=== PATIENT | male | born 1965 | race Caucasian/White ===

== ENCOUNTER 2024-02-10 18:42 | Emergency (ER) | payer SELFPAY ==
[2024-02-10] VITALS (20 sets, daily range): BP systolic 121–168; BP diastolic 67–114; PULSE 59–93; RESP 18–26; TEMP 36.4–36.6; O2SAT 94–99
--- NOTE | 2024-02-10 18:45 | RT.EKG_ITS ---
APPROVED REPORT Exam: Resting ECG Reason for Exam: SOB Patient Location: E HR:84 bpm ECG Measurements Heart Rate 84 AXIS RI 164 P 69 QRSd 76 QRS 28 QT 367 T 43 QTc 437 Conclusion Sinus rhythm...normal P axis, V-rate 60- 99 Atrial premature complex...SV complex w/ short R-R interval Normal [place] I have reviewed and interpreted ECG and agree with software generated interpretation.
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
--- NOTE | 2024-02-10 19:37 | DI.RAD_ITS ---
Exam(s) XR PORTABLE CHEST AP EXAM: XR PORTABLE CHEST AP CLINICAL HISTORY: PUI/SOB. TECHNIQUE: 2D digital imaging was performed. COMPARISON: No exams were available for comparison FINDINGS: LUNGS: Clear. No pleural abnormality seen. HEART: Normal size. AORTA: Normal diameter. BONES: Unremarkable for age. Soft tissues: Unremarkable. IMPRESSION: No acute findings. DATA REPOSITORY: RADIATION DOSE DELIVERED:
[2024-02-10] MEDS: Bacitracin 1 PACKET TP (19:42)
[2024-02-10 20:09] LABS: COVID-19 PCR Negative (Negative); Influenza A PCR Negative (Negative); Influenza B PCR Negative (Negative); RSV PCR Negative (Negative)
[2024-02-10 20:11] LABS: Source Nasopharynx
--- NOTE | 2024-02-10 20:29 | DI.VRAD_ITS ---
PROCEDURE INFORMATION: Exam: XR Chest Exam date and time: 02/10/2024 7:36 PM Age: 58 years old Clinical indication: Shortness of breath TECHNIQUE: Imaging protocol: Radiologic exam of the chest. Views: 1 view. COMPARISON: No relevant prior studies available. FINDINGS: Lungs: Lungs are clear with no infiltrate or nodule. Pleural spaces: Unremarkable. No pleural effusion. No pneumothorax. Heart/Mediastinum: Cardiomediastinal silhouette is normal. Bones/joints: Unremarkable. IMPRESSION: No active cardiopulmonary disease. Dictated and Authenticated by: Grant Moreno MD. Ordering:TRICE High MD
[2024-02-10] MEDS: Amox. 875/Clav. 125, 2 TABS/BTL 1 TAB PO (21:03)
[2024-02-10] MEDS: Amoxicillin 875/Clav. 125 TAB PO (21:03)
== END 2024-02-10 21:49 | disposition home or self-care (01) ==
PROVIDERS: Emergency Provider Registered Nurse Emergency
DX: L03.116 Cellulitis of left lower limb (principal); F17.210 Nicotine dependence, cigarettes, uncomplicated; F17.290 Nicotine dependence, other tobacco product, uncomplicated; Z59.00 Homelessness unspecified
CPT/HCPCS: 87637; 93005; 99285; 71045; 93010; 99284

== ENCOUNTER 2024-03-03 20:21 | Emergency (ER) | payer SELFPAY ==
[2024-03-03] VITALS (41 sets, daily range): BP systolic 109–162; BP diastolic 60–83; PULSE 42–66; RESP 6–19; TEMP 36.1; O2SAT 95–99
--- NOTE | 2024-03-03 20:15 | RT.EKG_ITS ---
APPROVED REPORT Exam: Resting ECG Reason for Exam: sob Patient Location: E HR:60 bpm ECG Measurements Heart Rate 60 AXIS [place] 171 P 73 QRSd 80 QRS 46 QT 395 T 51 QTc 394 Conclusion Sinus rhythm...normal P axis, V-rate 60- 99 Consider anteroseptal infarct...Q >30mS, dimin R, V1-V2 Physician: no stemi
--- NOTE | 2024-03-03 20:30 | DI.RAD_ITS ---
Exam(s) XR CHEST 2V PA LATERAL EXAM: XR CHEST 2V PA LATERAL CLINICAL HISTORY: dizziness TECHNIQUE: 2D digital imaging was performed. Two views. COMPARISON: CR,XR XR PORTABLE CHEST AP from 02/10/2024 FINDINGS: HEART: Normal size. Aorta: Not dilated. PULMONARY VASCULATURE: Normal. MEDIASTINUM: Unremarkable. LUNGS: Clear. PLEURAL SPACE: No pleural effusion or pneumothorax. BONE:Unremarkable for age. SOFT TISSUES: Unremarkable. IMPRESSION: No acute abnormality. DATA REPOSITORY: RADIATION DOSE DELIVERED:
--- NOTE | 2024-03-03 20:36 | W.ED.GENAD ---
Discharge Plan Disposition Patient Disposition: Home Condition: Stable Discharge Details Clinical Impression: Episode of dizziness, Chest discomfort Primary Care Provider: Joselito Irwin ED Provider: Michelle Finney Home Meds and New Rx's Prescriptions: No Action No Known Home Meds Discharge Instructions Additional Instructions: Please call [facility] first thing in the morning to schedule follow-up appointment to discuss today's episodes of chest pain and dizziness. A referral has been made for you to have emergency department follow-up. Your workup today was reassuring. Please return to emergency care if you develop new chest pains, difficulty breathing, episodes of passing out, or if you are very worried and need to be rechecked again immediately. Referrals: Joselito Irwni, REFRACTORY MIXER [Primary Care Provider] - [facility] General Date/Time Provider Initiated Documentation: 03/03/24 20:22. [facility] Narrative: Hari is a 58-year-old male who presents to the emergency department today for evaluation of elevated blood glucose, generally not feeling well, and episode of chest pressure that occurred this morning. He reports that this morning he woke up and had an episode of chest pressure that lasted approximately 10 minutes while laying in bed. This was not accompanied by any other symptoms, resolved spontaneously. This afternoon he was sitting in a chair and felt dizzy, lasting only a couple of seconds, no other associated symptoms such as nausea/vomiting, allover warmth, vision changes. This also resolved spontaneously; he is not currently dizzy. He says that he has not been feeling well today, has had chills as well. He checked his blood sugar with a friend's meter and it read high, so he became concerned and wanted to come to the emergency department. No known past medical history, says he has not seen a doctor in a long time. Denies history of drug use. He does have a chronic cough attributed to 2 pack/day smoking habit. Denies regular EtOH use. Physical exam very reassuring. Patient alert and oriented, no acute distress. Moist mucous membranes. Cranial nerves II through XII intact as tested. EOMs intact, no nystagmus. Normal finger finger, finger-nose, rapid alternating movements, Romberg, heel busch, tandem walk, gait. 5 out of 5 muscle strength upper and lower extremities. Easy work of breathing, lung sounds clear bilaterally. Normal heart sounds. Abdomen is soft, nondistended, nontender to palpation with normoactive bowel sounds. DDx includes but is not limited to: Viral illness, cardiac arrhythmia, GERD, electrolyte imbalance, dehydration, vasovagal near syncope, orthostatic hypotension, ACS less likely I independently interpreted the following tests: CBC, CMP, magnesium, troponin all reassuring. COVID/flu/RSV negative. EKG reassuring, normal sinus rhythm with rate 60, no changes consistent with acute ischemia. Chest xray unremarkable, no obvious infiltrates or cardiomegaly. Handoff report given to Dr. Fenton, overnight attending; second troponin pending. Related Data Home Medications ?Medication ?Instructions ?Recorded ?Confirmed Unknown [No Known Home Meds] 03/03/24 03/03/24 Allergies Allergy/AdvReac Type Severity Reaction Status Date / Time No Known Allergies Allergy Unverified 02/10/24 19:08 General Stated Complaint: SOB/SuddenOnset LAKISHA: 2 Review of Systems Narrative: See HPI Exam Const General: cooperative, healthy appearing, comfortable, no acute distress, well developed and well groomed Nutritional Appearance: average body habitus HENMD Head: normal to inspection Face and sinus: normal facial exam Mouth: moist mucous membranes Eyes Pupils: PERRL EOM: EOM intact bilaterally Neck Neck: normal visual inspection and full ROM Resp Effort & Inspection: normal respiratory effort and able to speak in complete sentences Auscultation: clear to auscultation bilaterally Cardio Rate: regular rate Rhythm: regular rhythm GI Inspection: normal to inspection and non-distended Palpation: soft, not firm and not rigid Auscultation: normal bowel sounds Neuro General: patient alert, patient oriented x3, gait normal, tone normal, moves all extremities, no focal motor deficits and CN's II-XI intact bilaterally Cranial Nerves: CN's II-XI intact bilaterally, sense of smell intact, PERRL, EOM intact bilaterally and no nystagmus Cognition: normal cognition Speech: speech normal Gait: normal gait Motor: muscle tone normal throughout and strength 5/5 throughout Sensory Exam: no sensory deficits noted Coordination: [id number] test normal, [id number]-[id number] test normal, Romberg test normal, tandem gait normal, Does not sway with eyes open and rapid alternating movement UE normal Course Vital Signs Vital signs: Vital Signs Temperature 36.1 C L 03/03/24 20:20 Pulse 53 L 03/03/24 20:20 Respiratory Rate 13 03/03/24 20:20 Blood Pressure 154/65 H 03/03/24 20:20 Pulse Oximetry 98 03/03/24 20:20 Temperature 36.1 C L 03/03/24 20:20 Temperature Source Skin 03/03/24 20:20 Pulse 53 L 03/03/24 20:20 Respiratory Rate 13 03/03/24 20:26 Respiratory Effort Normal 03/03/24 20:26 Respiratory Depth Normal 03/03/24 20:26 Respiratory Pattern Normal 03/03/24 20:26 Blood Pressure 154/65 H 03/03/24 20:20 Blood Pressure Position Supine 03/03/24 20:20 Pulse Oximetry 98 03/03/24 20:20 Oxygen Delivery Method Room Air 03/03/24 20:20 Oxygen Flow Rate 0 03/03/24 20:20 Pain Level 3 03/03/24 20:20 Medical Decision Making Quality:SDOH Health Related Social Needs: No Data to Display PFSH All Active Problems (Updated 03/03/24 @ 22:34 by Michelle Adam) Chest discomfort (Acute) Episode of dizziness (Acute) Cellulitis (Acute) Dog scratch (Acute) Social History Smoking/Tobacco Use Status: Current every day Tobacco Type: cigarettes Tobacco: How many years used: 20 Smoking risk assessment performed?: Yes Alcohol Intake: current Alcohol Intake frequency: holidays/special occasions only Alcohol type: beer Drug use: Occasionally Substance use type: marijuana Housing: house Do you feel safe at home: Yes Do you feel safe in your relationship?: Yes
[2024-03-03 20:45] LABS: Abs Immature Grans 0.02 10^3/uL (0.0-0.06); Absolute Basophil Count 0.09 10^3/uL (0.0-0.2); Absolute Eosinophil Count 0.21 10^3/uL (0.0-0.7); Absolute Lymphocyte Count 3.25 10^3/uL (1.2-3.4); Absolute Monocyte Count 0.58 10^3/uL (0.1-0.8); Absolute Neutrophil Count 5.37 10^3/uL (1.2-6.7); Basophils % 0.9 %; Eosinophils % 2.2 %; HCT 45.4 % (40.0-50.0); Immature Grans % 0.2 %; Lymphocytes % 34.1 %; MCH 30.7 pg (27.0-33.0); MCV 93 fL (80-95); MPV 10.7 fL (8.0-11.0); Monocytes % 6.1 %; Neutrophils % 56.5 %; Platelet Count 194 10^3/uL (130-400); RBC 4.88 10^6/uL (4.36-5.78); RDW 13.1 % (11.8-14.1); RDW-SD 44.6 fL; WBC 9.52 10^3/uL (4.4-10.8)
[2024-03-03] MEDS: Acetaminophen 325 MG TAB 650 MG PO (20:57)
[2024-03-03 21:00] LABS: ALT 17 U/L (16-63); AST 12 U/L (15-37); Albumin 3.5 g/dL (3.4-5.0); Alkaline Phosphatase 101 U/L (46-116); Anion Gap 5.7 mmol/L (3-11); BUN 12 mg/dL (7-18); Bilirubin, Total 0.32 mg/dL (0.2-1.0); CO2 30.3 mmol/L (21.0-32.0); CREATININE 1.1 mg/dL (0.70-1.30); Calcium 9.1 mg/dL (8.5-10.1); Chloride 104 mmol/L (98-107); Estimated GFR 77.33 (mL/min/1.73m2); Glucose 88 mg/dL (74-106); Magnesium 2.1 mg/dL (1.8-2.4); Potassium 3.9 mmol/L (3.5-5.1); Sodium 140 mmol/L (136-145); Total Protein 7.2 g/dL (6.4-8.2); Troponin I < 50 ng/L (< or =60)
[2024-03-03 21:42] LABS: COVID-19 PCR Negative (Negative); Influenza A PCR Negative (Negative); Influenza B PCR Negative (Negative); RSV PCR Negative (Negative)
[2024-03-03 21:59] LABS: Source NASOPHARYNX
--- NOTE | 2024-03-03 23:48 | DI.VRAD_ITS ---
PROCEDURE INFORMATION: Exam: XR Chest Exam date and time: 03/03/2024 10:39 PM Age: 58 years old Clinical indication: Other: Dizziness TECHNIQUE: Imaging protocol: Radiologic exam of the chest. Views: 2 views. COMPARISON: CR XR PORTABLE CHEST AP 02/10/2024 7:36 PM FINDINGS: Lungs: Unremarkable. No consolidation. Pleural spaces: Unremarkable. No pleural effusion. No pneumothorax. Heart/Mediastinum: Unremarkable. No cardiomegaly. Vasculature: Unfolding of the thoracic aorta. Bones/joints: Small multilevel anterior osteophytes of the thoracic spine. IMPRESSION: No acute cardiopulmonary process. Dictated and Authenticated by: Montrell Lopez MD. Ordering:WILIAN Martinez MD
[2024-03-03 23:54] LABS: Troponin I < 50 ng/L (< or =60)
[2024-03-04] VITALS: PULSE 51; RESP 12; O2SAT 97
[2024-03-04 00:01] VITALS: BP 135/71; PULSE 49; PULSE 56; RESP 18; O2SAT 97
--- NOTE | 2024-03-04 00:02 | W.EDPROG ---
Date of service: 03/04/24 Time of Service: 00:03 Medical Decision Making Patient was signed out to me by my colleague Michelle. Please refer to her HPI, physical exam, assessment and plan. We are pending repeat troponin at time of reassessment, with expectant discharge. Repeat troponin has returned normal, EKG benign. Patient has no chest pain. Low risk in regards to potential for Mace. Symptoms appear clinically inconsistent with ACS. Patient will be discharged home. Will recommend nonemergent outpatient stress testing. Patient states he will be contacting his PCP. Discussed red flags for which to return. I have extensively reviewed the treatment plan and discharge instructions with the patient. I have addressed all patient concerns at this time. The patient was made aware of what symptoms to monitor for that would warrant a return to the emergency department. Discussed the plan with the patient, they demonstrate verbal understanding and agreement with our assessment and plan at this time. The documentation in this chart was dictated using [employer] dictation software. Please excuse any dictation errors. FINDINGS: Lungs: Unremarkable. No consolidation. Pleural spaces: Unremarkable. No pleural effusion. No pneumothorax. Heart/Mediastinum: Unremarkable. No cardiomegaly. Vasculature: Unfolding of the thoracic aorta. Bones/joints: Small multilevel anterior osteophytes of the thoracic spine. IMPRESSION: No acute cardiopulmonary process. Thank you for allowing us to participate in the care of your patient. Dictated and Authenticated by: Montrell Lopez MD 03/03/2024 11:48 PM Eastern Time ([place] & [place]) Quality:SDOH Health Related Social Needs: No Data to Display Discharge Plan Disposition Patient Disposition: Home Condition: Stable Discharge Details Clinical Impression: Episode of dizziness, Chest discomfort Primary Care Provider: Joselito Irwin ED Provider: Michelle Finney Home Meds and New Rx's Prescriptions: No Action No Known Home Meds Discharge Instructions Additional Instructions: Please call [facility] first thing in the morning to schedule follow-up appointment to discuss today's episodes of chest pain and dizziness as well as to help schedule outpatient nonemergent stress testing.. A referral has been made for you to have emergency department follow-up. Your workup today was reassuring. If you notice any worsening of your symptoms, or any new symptoms such as vomiting, diarrhea, fever, chills, shortness of breath, chest pain, numbness, weakness, or fainting , please return immediately to the emergency department for reevaluation. Please follow up with your primary care provider as soon as possible for reassessment and reevaluation. As always, it was a pleasure participating in your medical care today. Referrals: Joselito Irwin NP [Primary Care Provider] -
== END 2024-03-04 00:11 | disposition home or self-care (01) ==
LOC: ER 22:34 → RED 03-04 00:11
PROVIDERS: Emergency Provider Nurse Practitioner Family; PCP Nurse Practitioner Family
DX: R42 Dizziness and giddiness (principal); R51.9 Headache, unspecified; R07.9 Chest pain, unspecified; F17.210 Nicotine dependence, cigarettes, uncomplicated
CPT/HCPCS: 00123; 36415; 80053; 87637; 93005; 99285; 71046; 83735; 84484; 85025; 93010; 99284

== ENCOUNTER 2024-03-15 09:02 | Outpatient (CLI) | payer MEDICAID, SELFPAY ==
--- NOTE | 2024-03-15 09:00 | RT.EKG_ITS ---
APPROVED REPORT Exam: Resting ECG Reason for Exam: ED f/u Patient Location: O HR:47 bpm ECG Measurements Heart Rate [address] 201 P -12 QRSd 84 QRS 26 QT 431 T 39 QTc 381 Conclusion Sinus bradycardia...rate< 50 Poor R wave progression, likely due to lead placement
== END 2024-03-15 09:03 | disposition home or self-care (01) ==
LOC: DI.CM 09:03
PROVIDERS: PCP Nurse Practitioner Family; Visit Provider Nurse Practitioner Family
DX: R07.89 Other chest pain (principal)
CPT/HCPCS: 93010

== ENCOUNTER 2024-04-07 21:30 | Outpatient (REF) | payer MEDICAID, SELFPAY ==
[2024-04-07 21:43] LABS: Bilirubin Negative (Negative); Blood Negative (Negative); Clarity Clear (Clear); Glucose Negative (Negative); Ketones Negative (Negative); Leukocyte Esterase Negative (Negative); Nitrite Negative (Negative); Urobilinogen 0.2 mg/dL (Up to 0.2)
[2024-04-07 21:54] LABS: Hemoglobin A1C 5.4 % (<5.7)
[2024-04-07 22:21] LABS: Calculated LDL 160 mg/dL (<100); Cholesterol 227 mg/dL (<200); HDL Cholesterol 56 mg/dL (40-60); Triglyceride 59 mg/dL (<150); Vitamin B12 298 pg/mL (193-986)
[2024-04-08 18:03] LABS: PSA, Screening 0.7 ng/mL (<=3.5)
[2024-04-11 10:25] LABS: HIV-1/2 Ag & Ab Screen Negative (Negative)
[2024-04-11 10:29] LABS: Hepatitis C Ab w Rflx HCV PCR Negative (Negative)
== END 2024-04-07 21:31 | disposition home or self-care (01) ==
LOC: LBN 21:30
PROVIDERS: PCP Nurse Practitioner Family; Visit Provider Nurse Practitioner Family
DX: Z12.5 Encounter for screening for malignant neoplasm of prostate (principal); Z11.4 Encounter for screening for human immunodeficiency virus [HIV]; R35.0 Frequency of micturition; G62.9 Polyneuropathy, unspecified; R73.9 Hyperglycemia, unspecified; Z13.220 Encounter for screening for lipoid disorders; Z11.59 Encounter for screening for other viral diseases
CPT/HCPCS: 80061; 84153; 86803; 87389; 81003; 82607; 83036

== ENCOUNTER 2024-05-06 00:20 | Outpatient (CLI) | payer MEDICAID, SELFPAY ==
--- NOTE | 2024-05-06 13:55 | DI.CT_ITS ---
Exam(s) CT CHEST WO EXAM: CT CHEST WO CLINICAL HISTORY: chest discomfort,smoker,productive cough,f17.200,r05.8,r07.89. TECHNIQUE: Multi planar reconstructions were performed. CONTRAST MATERIAL: None COMPARISON: CR,XR XR CHEST 2V PA LATERAL from 03/03/2024 FINDINGS: CHEST: LUNGS: No confluent infiltrates nor pleural effusions. No evidence of obvious interstitial fibrosis. There is a fissure related 4 mm noncalcified nodule in the right lower lobe adjacent to the major f issure. There is a benign-appearing 2 millimeter pleural based nodule in the anterior basal segment of the right lower lobe. There is also a 3 mm noncalcified nodule in the lateral basal segment of th e right lower lobe. In the opposite-left lung there is a small 2-3 mm noncalcified nodule in the lateral basal segment of the left lower lobe. There are no pleural effusions. No significant focal findings in the trachea and mainstem bronchi an d there is no bronchiectasis. MEDIASTINUM: There is no obvious hilar nor mediastinal adenopathy. CARDIAC: Heart size is normal. There is no pericardial effusion.Caliber of the thoracic aorta is wit hin normal limits. VISUALIZED UPPER ABDOMEN:There is a hypodense nodule in the right adrenal gland measuring 1.5 x 1.1 c m. Density measures -6 HU. This is less than 10 HU and therefore most probably an adenoma. OSSEOUS: No significant osseous lesions.No fractures.. IMPRESSION: 1. Multiple small bilateral pulmonary nodules measuring up to 4 mm size. 2. No infiltrates nor pleural effusions nor intrathoracic adenopathy. 3. Small hypodense nodule in the right adrenal gland which is most probably an incidental adenoma (d ensity measuring -6 HU) Recommend follow-up CT scan in 12 months (see below) Solid nodules smaller than 6 mm do not require routine follow-up in all patients with high clinical r isk; however, some nodules smaller than 6 mm with suspicious morphology, upper lobe location, or both may warrant follow-up at 12 months (grade 2A; weak recommendation, high-quality evidence). (Elaine et al., 2017) RADIATION DOSE DELIVERED: 199.16mGy.cm Total DLP DATA REPOSITORY: All CT scans at this facility are submitted to the National Radiology Data Registry (NRDR) Dose Index Registry (DIR) with the [employer] (ACR). RADIATION OPTIMIZATION: All CT scans at this facility use at least one of these dose optimization te chniques: automated exposure control; mA and/or kV adjustment per patient size (includes targeted exa ms where dose is matched to clinical indication); or iterative reconstruction.
== END 2024-05-06 00:40 ==
PROVIDERS: PCP Nurse Practitioner Family; Visit Provider Nurse Practitioner Family
DX: F17.210 Nicotine dependence, cigarettes, uncomplicated (principal); R05.8 Other specified cough; R91.8 Other nonspecific abnormal finding of lung field
CPT/HCPCS: 71250

== ENCOUNTER 2024-05-06 01:57 | Outpatient (CLI) | payer MEDICAID, SELFPAY ==
[2024-05-06] MEDS: Inhaler, Assist Device 1 EACH MC (13:55)
[2024-05-06] MEDS: Levalbuterol HFA 15 GM INH 4 PUFF IH (13:55)
--- NOTE | 2024-05-07 10:29 | W.PFT ---
Date of service: 05/06/24 Time of Service: 12:52 Pulmonary Function Test Result Indications: Chest pressure Interpretation Spirometry: There is no airflow limitaiton. No bronchodilator response. Lung Volumes: Normal lung volumes Diffusion Capacity: Normal diffusion Airway Pressure: Normal airways resistance Impression Normal pulmonary function testing Clinical Correlation therefore is recommended.
== END 2024-05-06 01:58 | disposition home or self-care (01) ==
LOC: RT 01:58
PROVIDERS: PCP Nurse Practitioner Family; Visit Provider Nurse Practitioner Family
DX: R07.89 Other chest pain (principal); F17.210 Nicotine dependence, cigarettes, uncomplicated
CPT/HCPCS: 94060; 94726; 94729

== ENCOUNTER 2024-12-19 15:52 | Outpatient (REF) | payer MEDICAID, SELFPAY | END 2024-12-19 15:53 | disposition home or self-care (01) | LOC: LBN 15:52 | PROVIDERS: PCP Nurse Practitioner Family; Visit Provider Podiatrist | DX: L97.529 Non-pressure chronic ulcer of other part of left foot with unspecified severity (principal); L02.612 Cutaneous abscess of left foot | CPT/HCPCS: 87070; 87075; 87205 ==

== ENCOUNTER 2024-12-23 01:28 | Outpatient (CLI) | payer MEDICAID, SELFPAY ==
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
== END 2024-12-23 01:48 ==
LOC: DI 01:28
PROVIDERS: PCP Nurse Practitioner Family; Visit Provider Podiatrist
DX: L02.612 Cutaneous abscess of left foot (principal)
CPT/HCPCS: 73630

== ENCOUNTER 2025-01-06 10:00 | Outpatient (CLI) | payer MEDICAID, SELFPAY ==
[2025-01-06 12:22] LABS: HCT 47.1 % (40.0-50.0); HGB 15.9 g/dL (13.5-17.5); MCH 31.4 pg (27.0-33.0); MCHC 33.8 % (32.0-36.0); MCV 93 fL (80-95); MPV 11.5 fL (8.0-11.0); Platelet Count 159 10^3/uL (130-400); RBC 5.07 10^6/uL (4.36-5.78); RDW 11.9 % (11.8-14.1); RDW-SD 40.6 fL; WBC 5.88 10^3/uL (4.4-10.8)
[2025-01-06 12:52] LABS: Folate 16.4 ng/mL (8.6-20.0)
== END 2025-01-06 10:01 | disposition home or self-care (01) ==
PROVIDERS: PCP Nurse Practitioner Family; Referring Provider Nurse Practitioner Family; Visit Provider Nurse Practitioner Family
DX: G62.9 Polyneuropathy, unspecified (principal)
CPT/HCPCS: 36415; 85027; 82746

== ENCOUNTER 2025-01-09 15:34 | Outpatient (REF) | payer MEDICAID, SELFPAY | END 2025-01-09 15:35 | disposition home or self-care (01) | LOC: LBN 15:34 | PROVIDERS: PCP Nurse Practitioner Family; Visit Provider Podiatrist | DX: L97.529 Non-pressure chronic ulcer of other part of left foot with unspecified severity (principal); S91.302A Unspecified open wound, left foot, initial encounter | CPT/HCPCS: 87070; 87075; 87205 ==

== ENCOUNTER 2025-04-11 15:01 | Outpatient (CLI) | payer MEDICAID, SELFPAY ==
[2025-04-11 16:06] LABS: Abs Immature Grans 0.01 10^3/uL (0.0-0.06); HCT 46.1 % (40.0-50.0); HGB 15.4 g/dL (13.5-17.5); Immature Grans % 0.2 %; MCH 30.3 pg (27.0-33.0); MCHC 33.4 % (32.0-36.0); MCV 91 fL (80-95); MPV 10.4 fL (8.0-11.0); Platelet Count 199 10^3/uL (130-400); RBC 5.08 10^6/uL (4.36-5.78); RDW 12.4 % (11.8-14.1); RDW-SD 41.6 fL; WBC 6.39 10^3/uL (4.4-10.8)
[2025-04-11 16:55] LABS: ALT 20 U/L (16-63); AST 18 U/L (15-37); Albumin 4.2 g/dL (3.4-5.0); Alkaline Phosphatase 108 U/L (46-116); Anion Gap 9.7 mmol/L (3-11); BUN 20 mg/dL (7-18); Bilirubin, Total 0.7 mg/dL (0.2-1.0); CO2 26.3 mmol/L (21.0-32.0); Calcium 8.9 mg/dL (8.5-10.1); Chloride 104 mmol/L (98-107); Cholesterol 227 mg/dL (<200); Estimated GFR 86.16 (mL/min/1.73m2); Glucose 89 mg/dL (74-106); Potassium 4.1 mmol/L (3.5-5.1); Sodium 140 mmol/L (136-145); Total Protein 7.7 g/dL (6.4-8.2); Triglyceride 48 mg/dL (<150); Vitamin B12 338 pg/mL (193-986)
[2025-04-11 22:29] LABS: PSA, Diagnostic 0.5 ng/mL (<=4.5)
[2025-04-12 05:02] LABS: Calculated LDL 161 mg/dL (<100); HDL Cholesterol 57 mg/dL (>or=40)
== END 2025-04-11 15:02 | disposition home or self-care (01) ==
LOC: LOS 15:01
PROVIDERS: PCP Nurse Practitioner Family; Referring Provider Nurse Practitioner Family; Visit Provider Nurse Practitioner Family
DX: E78.5 Hyperlipidemia, unspecified (principal); R35.0 Frequency of micturition; G62.9 Polyneuropathy, unspecified
CPT/HCPCS: 36415; 80053; 80061; 82607; 83930; 84153; 85025

== ENCOUNTER 2025-04-11 17:17 | Outpatient (REF) | payer MEDICAID, SELFPAY ==
[2025-04-11 20:06] LABS: Glucose Negative (Negative)
== END 2025-04-11 17:18 | disposition home or self-care (01) ==
LOC: LBN 17:17
PROVIDERS: PCP Nurse Practitioner Family; Visit Provider Nurse Practitioner Family
DX: R35.0 Frequency of micturition (principal); R35.1 Nocturia
CPT/HCPCS: 81003

== ENCOUNTER 2025-04-24 02:41 | Outpatient (CLI) | payer MEDICAID, SELFPAY ==
--- NOTE | 2025-04-24 08:45 | DI.CT_ITS ---
Exam(s) CT CHEST WO EXAM: CT CHEST WO CLINICAL HISTORY: constant cough, smoker, productive cough, f17.200,r05.8. TECHNIQUE: Imaging protocol: Axial computed tomography images were obtained and coronal and sagittal reformatted images were created and reviewed. Lung Computer Aided Detection (CAD) was utilized. COMPARISON: CR,XR XR CHEST 2V PA LATERAL from 03/03/[address] CHEST WO from 05/06/2024 FINDINGS: Tracheobronchial tree: Patent where visualized. No bronchiectasis is present. Pulmonary parenchyma: There is a stable nodule in the lateral basilar segment of the left lower lobe (series 2, image 108). There is a stable 3 mm nodule in the anterior aspect of the left upper lobe (series 2, image 42). There is a stable 5 mm nodule in the right upper lobe (series 2, image 53). There are stable nodules in the right middle lobe. There is a stable nodule associated with the right major fissure. There are no new pulmonary nodules. There are no focal consolidating infiltrates. Mediastinum and Shi: No dominant adenopathy or fluid collection. The esophagus is unremarkable. Thyroid gland: Unremarkable. Pleura: No effusion or pneumothorax. Heart: The heart is not dilated. Single-vessel coronary artery calcifications are present. No pericardial effusion. Aorta: Thoracic aorta non-dilated. Atherosclerotic calcification is present. Upper abdomen: Unremarkable. Lymph nodes: Within normal limits. Soft tissues: Unremarkable. Bones:Within normal limits for the patient's age. IMPRESSION: 1. Stable pulmonary nodules. 2. There are no new pulmonary nodules. 3. There is no acute pulmonary process. RADIATION DOSE DELIVERED: 206.68mGy.cm Total DLP 206.68mGy.cm Total DLP DATA REPOSITORY: All CT scans at this facility are submitted to the National Radiology Data Registry (NRDR) Dose Index Registry (DIR) with the [employer] ([employer]). RADIATION OPTIMIZATION: All CT scans at this facility use at least one of these dose optimization techniques: automated exposure control; mA and/or kV adjustment per patient size (includes targeted exams where dose is matched to clinical indication); or iterative reconstruction.
== END 2025-04-24 03:01 ==
LOC: DI 02:41
PROVIDERS: PCP Nurse Practitioner Family; Visit Provider Nurse Practitioner Family
DX: F17.210 Nicotine dependence, cigarettes, uncomplicated (principal); R05.8 Other specified cough; Z12.2 Encounter for screening for malignant neoplasm of respiratory organs; R91.8 Other nonspecific abnormal finding of lung field
CPT/HCPCS: 71250

== ENCOUNTER 2025-05-12 06:04 | Day surgery (SDC) | payer MEDICAID, SELFPAY ==
--- NOTE | 2025-05-11 16:59 | W.PM.DSUDISC ---
Date of service: 05/12/25 Discharge Plan Disposition Patient Disposition: Home Condition: Good Discharge Details Reason For Visit: Screening colonoscopy Attending Provider: Brent Steinberg Primary Care Provider: Joselito Irwin Home Meds and New Rx's Prescriptions: Continued ketoconazole 2 % cream 1 applic topical DAILY Qty: 120 6RF Rx Instructions: Apply to toenails once daily albuterol sulfate 90 mcg/actuation HFA aerosol inhaler 2 inh inhalation Q6H PRN (Reason: shortness of breath or wheezing) Qty: 18 4RF Rx Instructions: Dispense covered brand fluticasone propionate [Children's Flonase Allergy Rlf] 50 mcg/actuation spray,suspension 2 spray intranasal BID Qty: 16 0RF Rx Instructions: administer into each nostril amitriptyline 50 mg tablet 50 mg PO QHS Qty: 90 5RF rosuvastatin 5 mg tablet 5 mg PO DAILY Qty: 90 0RF Discontinued bisacodyl [Dulcolax (bisacodyl)] 5 mg tablet,delayed release (DR/EC) 5 mg PO ONCE Qty: 4 0RF Rx Instructions: Take per colonoscopy instructions provided by ordering providers office polyethylene glycol 3350 17 gram/dose powder 17 g PO ONCE Qty: 238 0RF Rx Instructions: Take per colonoscopy instructions provided by ordering providers office Discharge Instructions Additional Instructions: Team, it was nice meeting you today, and hope you feel well after the procedure. Things went smoothly. I did not see any signs of tumors, polyps, or any other worrisome pathology. With a negative colonoscopy today, recommend 10-year interval for next screening. If you need anything or have any questions, please do not hesitate to ask. 1. If tolerated, consume a soft, low fiber diet for 1-2 days. 2[address] Do not drive, drink alcohol, operate machinery, make critical decisions, or do activities that require coordination or balance for 24 hours. 3. Because air was put into your colon during the procedure, expelling air from your rectum (passing gas or farting) is normal. 4. You may not have a bowel movement for 1-3 days because of the colonoscopy prep. This is normal. 5. Go directly to the emergency room if you notice any of the following: Develop chills (warm to touch), or if you have a thermometer and your temperature is above 101 Difficulty breathing or difficultly swallowing Persistent vomiting Severe abdominal pain, other than gas cramps Severe chest pain Black, tarry stools Any bleeding – exceeding one tablespoon 6. Call your physician if the site where your intravenous was started becomes red, swollen, painful, and warm to touch. 7. Your physician has reviewed your pre-procedure medications. Please continue to take those medications as previously ordered. You will be given specific information/education regarding any changes to your medications before leaving. Stand Alone Forms: Anesthesia Discharge InsthCito, Elan Rodriges (DSU) Activity:: Activity as Tolerated Diet:: As Tolerated Discharge Orders Discharge Orders: Discharge Order (Routine); Ordered 05/11/25 Ordered By: Brent Steinberg DS: Diagnosis Discharge Diagnosis (1) Screening for colorectal cancer: Status: Acute Asessment and Plan: Negative screening colonoscopy; follow-up in
--- NOTE | 2025-05-11 17:00 | W.COLOREPORT ---
Date of service: 05/12/25 Time of Service: 08:04 Colonoscopy Report Date of procedure: 05/12/25 Pre-op diagnosis general: Screening colonoscopy Post-op diagnosis procedure note: other (Negative screening colonoscopy) Procedure: Colonoscopy Surgeon: Brent Steinberg Anesthesia Type: General:No Airway Estimated blood loss (mL): 0 Pathology: none sent Complications: None Disposition: same day Indications: Colin is a 59-year-old male who needs his next screening colonoscopy Prep: Miralax/Dulcolax Procedure Start Time: 07:33 Procedure End Time: 07:58 Retraction Time: 18 Findings: Negative screening colonoscopy Procedure Description: After the induction of anesthesia, and with the patient in left lateral decubitus position, I began by performing an external anorectal exam. Perineum and skin were normal, as was the anal verge. There was no evidence of external hemorrhoids. Next, I performed a digital rectal exam. I did not appreciate any abnormal findings. Next, I advanced a colonoscope into the rectal vault. I performed retroflexion. This appeared normal. Using irrigation, I then advanced the colonoscope beyond the rectal folds and into the sigmoid colon before advancing towards the cecum. The quality of the prep was adequate. The scope was noted to be in the cecum by identification of the ileocecal valve and appendiceal orifice. I then began withdrawing the colonoscope using repeated irrigation as necessary for full evaluation of the colonic mucosa. Once the scope was withdrawn to the level of the rectum, great care was taken to examine portions of the rectal folds. I saw no signs of tumors, polyps, or any other pathology. Finally, the scope was withdrawn and the patient was brought to the same-day surgery recovery unit as the anesthetic wore off. The findings and instructions were shared with the patient prior to discharge. [place] Bowel Prep Cleveland Bowel Prep Right Colon: 2 Left Colon: 2 Transverse Colon: 2 Total Score: 6
[2025-05-12 06:15] VITALS: BP 140/83; PULSE 49; RESP 16; TEMP 36.7; O2SAT 96
[2025-05-12] MEDS: Lactated Ringers 1,000 ML 80 ML IV (06:34)
--- NOTE | 2025-05-12 07:11 | W.ANESPRE ---
General Info Date of Service Date Performed: 05/12/25 Height: 5 ft 7.75 in Weight: 74.2 kg Body Mass Index (BMI): 25.0 Surgical Procedure: Operation Date: 05/12/25 07:35 Proposed Procedure Side Surgeon nighat Steinberg MD Meds Allergies and Home Medications Allergies Allergy/AdvReac Type Severity Reaction Status Date / Time No Known Allergies Allergy Verified 05/12/25 06:29 Home Medication Medication Instructions Recorded albuterol sulfate 90 mcg/actuation 2 inh inhalation Q6H PRN shortness 04/11/25 aerosol inhaler of breath or wheezing #18 grams amitriptyline 50 mg tablet 50 mg PO QHS #90 tabs 04/11/25 fluticasone propionate 50 2 spray intranasal BID #16 grams 04/11/25 mcg/actuation nasal spray,suspension (Children's Flonase Allergy Relief) ketoconazole 2 % topical cream 1 applic topical DAILY #120 grams 04/11/25 rosuvastatin 5 mg tablet 5 mg PO DAILY #90 tabs 04/11/25 Current Visit Medications: Current Medications Generic Name Dose Route Start Last Admin Trade Name Freq PRN Reason Stop Dose Admin Ringer's Solution 1,000 mls @ 80 mls/hr 05/12/25 06:00 05/12/25 06:34 IV 05/12/25 23:59 80 mls/hr INFUSION SIMA Administration IV Miscellaneous Supplies 1 each 05/12/25 06:00 Iv Access IV 05/12/25 23:59 DIRECTED SIMA Ondansetron HCl 4 mg 05/11/25 17:02 Ondansetron 4 Mg/2 Ml Vial IVP 06/10/25 17:01 Q4H PRN PRN Nausea / Vomiting Sodium Chloride 0 ml 05/12/25 06:00 Normal Saline Flush 10 Ml Syr IV 05/12/25 23:59 PRN PRN Sodium Chloride 0 ml 05/12/25 06:00 Normal Saline 10 Ml Vial IJ 05/12/25 23:59 DIRECTED PRN Sterile Water 0 ml 05/12/25 06:00 Water,Injection,Sterile 10 Ml Vial IJ 05/12/25 23:59 DIRECTED PRN PFSH Active Problems Active Problems: Problem Status Onset Code Seborrheic dermatitis of scalp Acute L21.9 Hyperlipidemia Acute E78.5 Screening for colorectal cancer Acute Z12.11, Z12.12 Urinary frequency Acute R35.0 Ulcer of right foot with fat layer exposed Acute L97.512 Abscess of left foot excluding toes Acute L02.612 Ulcer of left foot with fat layer exposed Acute L97.522 Plantar verruca Acute B07.0 Dystrophia unguium Acute L60.3 Onychomycosis Acute B35.1 PVD (peripheral vascular disease) Chronic I73.9 PAD (peripheral artery disease) Acute I73.9 Peripheral neuropathy Acute G62.9 Elevated blood pressure reading without diagnosis of hypertension Acute R03.0 Depression Chronic F32.A Nocturia Acute R35.1 Neuropathy Acute G62.9 Productive cough Acute R05.8 Smoker Acute F17.200 Tobacco Smoking/Tobacco Use Status: Current every day Tobacco Type: cigarettes Passive smoking exposure: Yes Second hand exposure: Yes Alcohol Alcohol Intake: current Alcohol intake frequency: a few times a month Alcohol type: beer and hard liquor Substance Use Substance use: Occasionally Substance use type: marijuana Vital Signs and Lab Results Vital Signs Most Recent Vital Signs in EMR: Most Recent Vital Signs Temp Pulse Resp BP Pulse Ox 36.7 C 49 L 16 140/83 96 05/12/25 06:15 05/12/25 06:15 05/12/25 06:15 05/12/25 06:15 05/12/25 06:15 Imaging and Studies Imaging and Studies Study information below may be from another EMR and interpreted by another provider. Please see original notes in EMR for more complete details. EKG Summary: 03/15/24: Exam: Resting ECG Reason for Exam: ED f/u Patient Location: O HR:47 bpm ECG Measurements Heart Rate 47 AXIS AK 201 P -12 QRSd 84 QRS 26 QT 431 T39 QTc 381 Conclusion Sinus bradycardia...rate< 50 Poor R wave progression, likely due to lead placement Pulmonary Function Summary: 05/07/24: Pulmonary Function Test Result Indications: Chest pressure Interpretation Spirometry: There is no airflow limitaiton. No bronchodilator response. Lung Volumes: Normal lung volumes Diffusion Capacity: Normal diffusion Airway Pressure: Normal airways resistance Impression Normal pulmonary function testing Clinical Correlation therefore is recommended. Anesthesia Assessment and Plan Anesthesia History Personal History: No History of Anesthesia Complications Family History: No Family History of Anesthesia Complications Exercise Tolerance Exercise Tolerance: Metabolic Equivalents>4 Pertinent Negatives Pertinent Negatives: No Symptoms of GERD, No Major Cardiovascular Symptoms or Complaints and No Major Pulmonary Symptoms or Complaints Cardiac & Pulmonary Exam Cardiac Exam: Normal S1/S2 Heart Sounds Pulmonary Exam: Clear Bilateral Breath Sounds Implantable Cardiac Device Does patient have a Pacemaker or an ICD?: No Airway Exam Known Difficult Airway: No Mallampati Class: 1 Mouth Opening: Normal (> 3cm) Thyromental Distance: Greater than 3 cm Facial Hair: Full Nina Neck Range of Motion: Full ROM Neck Circumference: Normal Teeth Condition: Normal Dentition ASA Classification ASA Score: ASA 2 Emergency Case?: No NPO Status NPO Status: NPO Clears >2 hours, Solids >8 hours Anesthesia Plan Resuscitation Status: Full Code Anesthesia Technique: General Anesthesia Airway Planned: Natural Airway Monitors Used: Standard Monitors
[2025-05-12 07:15] VITALS: BMI 25.0
--- NOTE | 2025-05-12 08:00 | RT.EKG_ITS ---
APPROVED REPORT Exam: Resting ECG Reason for Exam: ?Afib Patient Location: O HR:54 bpm ECG Measurements Heart Rate 54 AXIS WV 209 P 70 QRSd 89 QRS 37 QT 411 T 44 QTc 365 Conclusion Sinus bradycardia...rate< 60 Atrial premature complexes...SV complexes w/ short R-R intvls Borderline prolonged WV interval...WV >202, V-rate 50- 90
[2025-05-12 08:02] VITALS: BP 110/69; PULSE 53; RESP 14; TEMP 36.2; O2SAT 100
[2025-05-12 08:26] VITALS: BP 132/77; PULSE 58; RESP 16; TEMP 36.3; O2SAT 100
--- NOTE | 2025-05-12 08:28 | W.ANESPOSTOP ---
Postoperative Evaluation Date, Time and Location Date Performed: 05/12/25 Time Performed: 08:28 Patient Location: Day Surgery Unit Vital Signs Most Recent Imported Vital Signs: Most Recent Vital Signs Temp Pulse Resp BP Pulse Ox 36.3 C L 58 L 16 132/77 100 05/12/25 08:26 05/12/25 08:26 05/12/25 08:26 05/12/25 08:26 05/12/25 08:26 Pain Score Most Recent Pain Score: Most Recent Pain Score Pain Level 0 05/12/25 08:26 Assessment Mental Status: Awake (Alert & Oriented to Patient Baseline) Airway and Respiratory Function: Patent airway with normal (patient baseline) respiratory exam Cardiovascular Function: Hemodynamically Stable Hydration Status: Adequately Hydrated Nausea & Vomiting: No Nausea or Vomiting Pain: Pt. Denies Any Pain Peripheral Nerve Block: Patient did not receive a nerve block Postoperative Comments:: EKG obtained post procedure, PACs documented. Reports no chest pain or pressure, SOB.
== END 2025-05-12 08:44 | disposition home or self-care (01) ==
LOC: SUR 06:05
PROVIDERS: PCP Nurse Practitioner Family; Visit Provider Surgery
PROC: 0DJD8ZZ Inspection of Lower Intestinal Tract, Via Natural or Artificial Opening Endoscopic (ICD-10-PCS; CPT 45378; principal; 2025-05-12 07:30)
DX: Z12.11 Encounter for screening for malignant neoplasm of colon (principal); Z12.12 Encounter for screening for malignant neoplasm of rectum
CPT/HCPCS: 45378; 93005; 93010; J2704